=== PATIENT | male | born 1995 | race Caucasian/White ===

== ENCOUNTER 2023-06-24 18:20 | Observation (INO) | payer BC, SELFPAY ==
[2023-06-24 14:01] VITALS: BP 115/91
[2023-06-24 16:18] VITALS: BMI 28.5
[2023-06-24] MEDS: VERSED 2 MG IM (16:22)
--- NOTE | 2023-06-24 16:29 | ED.GENMED ---
History of Present Illness
General
Chief Complaint: Abdominal Pain
Time Seen by Provider: 06/24/23 15:47
Travel History
Have you had any contact with someone who has COVID-19?: No
Do you have any symptoms of coronavirus? Fever > 100 degrees, chills, cough, shortness of breath, sore throat, loss of taste or smell, muscle aches, or headache?: No
History of Present Illness
History of Present Illness:
28-year-old male with history of profound autism disorder presents due to an abnormal outpatient CT scan. He arrives with both parents. According to the parents since February he has had increased agitation and aggressive behavior however over the
past week he has had poor appetite. It is also noted that he had a fall 3 weeks ago and landed on his left side however did not seem to be affected by this negatively. He has had poor appetite over the past week and he saw his primary care
physician and they were concerned for a possible abdominal issue thus he was sent for an outpatient noncontrast CT scan which revealed free air adjacent to the left colon splenic flexure. Patient has not had any fevers and has not been vomiting.
Other than the aggression and appetite changes there has been no other abnormal behavior noted. No history of intra-abdominal surgeries. He does have chronic constipation
Review of Systems
Review of Systems
Allergies reviewed?: Yes
All Other Systems: ROS reviewed and negative except as documented in HPI and ROS
Phy Exam
Physical Exam
Physical Exam:
GEN: Well appearing, NAD, WDWN
HEENT: Oral mucosa moist, no scleral icterus
Cardiac: Regular rate
Lung: No respiratory distress, no tachypnea
Abdomen: Protuberant, generally soft and nonrigid with no pain elicited on exam
MSK: No gross deformity or injuries
Skin: Good color, no pallor or jaundice, no rashes
Neuro: Alert, moves all extremities freely, follows commands given by parents, nonverbal
Psych: Calm, cooperative
Course
Orders/Labs/Results
Orders:
Orders
06/24/23 16:00
Complete Blood Count/With Diff Urgent
Comprehensive Metabolic Panel Urgent
Lipase Urgent
Blood Culture Q30M
ALL Source: Blood/Venous
Specimen Description:
Midazolam HCl [Versed] 2 mg IM NOW STA
06/24/23 16:15
Lactic Acid Q4H
Comment: CANCEL 2nd LACTIC ACID IF 1st LACTIC ACID IS LESS THAN 2
06/24/23 16:30
Blood Culture Q30M
ALL Source: Blood/Venous
Specimen Description:
06/24/23 17:18
CT Abd/pel W Iv And Oral Contr Urgent
Comment:
Reason For Exam: free air on outpatient CT
Iohexol [Omnipaque] See Protocol PO NOW STA
06/24/23 20:15
Lactic Acid Q4H
Comment: CANCEL 2nd LACTIC ACID IF 1st LACTIC ACID IS LESS THAN 2
Vital Signs
Initial and Last Documented VS:
Initial Vital Signs
Temp Pulse Resp BP Pulse Ox
98.8 F 95 16 115/91 98
06/24/23 14:01 06/24/23 14:01 06/24/23 14:06/24/23 14:01 06/24/23 14:01
Last Documented Vital Signs
Temp Pulse Resp BP Pulse Ox
98.8 F 95 16 115/91 98
06/24/23 14:01 06/24/23 14:01 06/24/23 14:01 06/24/23 14:01 06/24/23 14:01
MDM/Problems Addressed
MDM/Problems Addressed:
He is a challenging situation does not clear the acuity of the visible free air. I reviewed the case with general surgery who consulted on the patient in the emergency department. After lengthy discussion with both parents her options were given
for urgent laparoscopic evaluation versus close observation, the parents elect observation. This is reasonable at this time given the patient is nontoxic and has a nonperitoneal abdominal exam. We will attempt to obtain a repeat CT scan with both
IV and p.o. contrast although this will likely be difficult in the setting of the patient's autism. He will be admitted to the surgical service for overnight observation with consideration of operative intervention if this is deemed necessary by
repeat imaging or repeat clinical examination.
Patient did require IM midazolam for anxiolysis in order to facilitate placement of IV and remainder of workup/consultations
*Critical Care Note
Total Time (30-74mins, 75-104mins- exclusive of procedures): Not Applicable
ED Attending Note
-
Portions of this chart may have been created with voice recognition software.� Occasional wrong word or��sound alike� substitutions may have occurred due to the inherent limitations of voice recognition software.
Discharge Plan
Departure
Patient Disposition: Admit
Date of Disposition: 06/24/23
Time of Disposition: 17:34
Admit to: Med/Surg
Presentation/result/management discussed w/ accepting MD/DO: General Surgery
Discharge Problem:
Intra-abdominal free air of unknown etiology
Interventions
Interventions:
*Risk Screen - Suicide Last Done: 06/24/23 16:22
*General Assessment Last Done: 06/24/23 16:22
*Neglect/Abuse Screening Last Done: 06/24/23 16:22
*ED COVID-19 Vaccine History Last Done: 06/24/23 16:22
KP-Vsenmh-Edivsandit Assessment Last Done: 06/24/23 16:22
[2023-06-24 17:30] VITALS: BP 124/71
--- NOTE | 2023-06-24 17:32 | W.PN.UPDATE ---
Update Note
Progress Note Update
Seen together with RONALDO. 28M non verbal 2/2 ASD with several months of intermittent increased agitation that seemed progressive to his parents. Long hx of constipation. Lately has been eating less and less over many weeks. They deny f/c/n/v. Last BM
yesterday reportedly was loose. Mom reports low dose advil a few times a day for the past few days, usually with some food but not much. He went for outpt noncon CT which showed a few small bubble of extraluminal air, along with an
ascending/transverse colon dilated with stool and fairly abrupt change at the splenic flexure with decompressed descending colon and rectum. Difficult exam given ASD, but there is no guarding, no rigidity, no effort to remove noxious stimuli, and
belly is overall soft. Unable to comment defnitively on tenderness but there was no grimace or noise during the exam. Labs presently have not been completed. He has been AFVSS since arrival.
Plan for admit to Surgery, IV abx, NPO, IVF, rpt CT A/P with PO and IV contrast, rpt labs in the am. SCDs and ppx lovenox. Discussed at length with parents, challenging situation. Up front dx lap was offered, after discussions the family preference
is to wait for additional data and to continue monitoring for now. I am in agreement.
[2023-06-24] MEDS: OMNIPAQUE 50 ML PO (17:37)
--- NOTE | 2023-06-24 17:39 | HPS.HSE ---
Addendum entered and electronically signed by Michael Fay MD 06/25/23 13:47:
I saw and examined the patient independently.
The Water Treatment [employer] Operator's note was reviewed and I agree with the note, assessment and plan except where noted below.
Comment: This is a 28-year-old male with a history of autism and worsening agitation over the past week with concern for abdominal pain in the setting of chronic constipation who was found to have localized pneumoperitoneum to the splenic flexure
portion of the colon without free fluid on CT at an outside hospital and presented here for further workup and management. A repeat scan here demonstrated pneumatosis coli without portal venous gas or concern for abdominal ischemia. The patient is
difficult to examine but he is and not tender to palpation in his abdomen soft.
No acute surgical intervention warranted at this time.
Will advance diet and have him continue advancing his diet at home.
Bowel regimen.
Will have the follow-up with me in a few weeks to discuss an outpatient colonoscopy and upper endoscopy
Dispo planning
Original Note:
Family Physician
-
Family Physician: Joey Hassan
Chief Complaint
-
agitation
History of Present Illness
This is a 28 yo male with a history of autism who presents through the ED with both parents as he has had worsening agitation over the past weeks. He first began to become more agitated back in February but this resolved without intervention;
however, agitation returned in the last several weeks prompting them to seek outpatient work up with his PCP. He is mostly nonverbal and unable to make needs known easily. Over the past 2 days, he has been refusing to eat or will take one bite and
then push his plate away. He struggles with chronic constipation and required a laxative 2 days ago as he had not had a BM for several days which his mother notes produced a large, loose brown BM yesterday. He has also seemed uncomfortable to his
parents and they have tried giving him ibuprofen 600mg 2-3 times a day over the past 4 days without much benefit. This morning, he had an outpatient CT image of the abd/pelvis at [facility] which demonstrated small bubbles of free intraperitoneal air and
they were instructed to bring him to the ED. On exam, he makes sounds but is nonverbal. He is comfortably watching cartoons on his cellphone and resting comfortably in bed. His abdomen is mildly distended, he registers some mild discomfort with
deep palpation to the left abdomen without peritoneal signs noted. He has normal vital signs and a normal WBC count.
Medical History
Past Medical History
Past Medical History: Reports Other (Autism)
Past Surgical History: Reports None
Social History
Tobacco: Non-smoker
Alcohol: None
Living: With Family
Family History
Family History: Not pertinent
Allergies / Home Medications
Allergies reflects when Allergies were last updated in [facility].
Home Medications with original date entered in [facility]
Allergy/Medication List:
Medication Instructions Recorded Confirmed Type
apple cider vinegar 300 mg tablet 300 mg PO DAILY 06/24/23 06/24/23 History
ascorbic acid (vitamin C) 500 mg 500 mg PO DAILY 06/24/23 06/24/23 History
tablet (Vitamin C)
cholecalciferol (vitamin D3) 25 25 mcg PO DAILY 06/24/23 06/24/23 History
mcg (1,000 unit) tablet (Vitamin
D3)
clonazepam 0.5 mg tablet 0.5 mg PO QPM 06/24/23 06/24/23 History
clonazepam 0.5 mg tablet 1 mg PO DAILY 06/24/23 06/24/23 History
clonidine HCl 0.1 mg tablet 0.1 mg PO QID 06/24/23 06/24/23 History
diphenhydramine HCl 50 mg capsule 50 mg PO DAILYPRN PRN anxiety 06/24/23 06/24/23 History
ibuprofen 200 mg tablet (Advil) 400 mg PO Q6HPRN PRN mild pain 06/24/23 06/24/23 History
sertraline 50 mg tablet 50 mg PO BID 06/24/23 06/24/23 History
therapeutic multivitamin 1 tab PO DAILY 06/24/23 06/24/23 History
Patient Allergies
Allergy/AdvReac Type Severity Reaction Status Date / Time
haloperidol [From Haldol] Allergy Swelling Verified 06/24/23 13:59
Review of Systems
-
Unable to obtain full review of systems at this time due to: Patient Non-verbal
History Source: Family
Physical Exam
Vital Signs
Vital Signs
Temp Pulse Resp BP Pulse Ox
98.8 F 84 16 124/71 95
06/24/23 14:01 06/24/23 17:30 06/24/23 17:30 06/24/23 17:30 06/24/23 17:30
Physical Exam
General: Well Developed, Well Nourished and No Apparent Distress
HEENT: NormoCephalic and Moist mucous membranes
Respiratory: Non Labored Respirations
GI: Soft, Tender (Possibly tender to LUQ, difficult exam) and Distended (mild)
Skin: Warm and Dry
Neuro: Awake and Alert
Psych: Calm
Data Reviewed
-
CT Scan: Image Personally Visualized and interpreted, Report Reviewed by me, Discussed with Physician and Discussed with Patient
Lab Data: Labs Reviewed by me, Discussed with Physician, Discussed with Patient and Discussed with Family
Old Records: Reviewed
Impression/Plan
-
IMPRESSION: 28 yo male with autism who is nonverbal presenting with several weeks of worsening agitation with loss of appetite and acute worsening over the past few days. Outpatient CT at [facility] with IV contrast shows a few small bubble of
extraluminal air, along with an ascending/transverse colon dilated with stool and fairly abrupt change at the splenic flexure with decompressed descending colon and rectum.�Vital signs and labs WNL. Challenging situation given exam limitations.
Discussed at length with parents regarding dx lap vs watchful waiting. Opting for watchful waiting at this time. Differential includes perforated gastric/duodenal ulcer given NSAID use or more likely small perforated diverticulitis vs small
perforation from stercoral colitis.
PLAN:
Admit for observation
Keep NPO and follow labs/exams
Start IV antibiotics
Pain management as needed
Repeat Ct a/p with oral and iv contrast
SCDs/Lovenox for vte ppx
[2023-06-24 17:42] LABS: % Basophils 0.3 % (0-2); % Eosinophils 2.9 % (0-6); % Immature Granulocytes 0.2 % (0-0.5); % Lymphocytes 20.7 % (20.5-51.1); % Monocytes 8.4 % (1.7-9.3); % Neutrophils 67.5 % (42.2-75.2); Absolute Eosinophils 0.2 10^3/uL (0-0.7); Absolute Lymphocytes 1.2 10^3/uL (1.2-3.4); Absolute Monocytes 0.5 10^3/uL (0.1-0.6); Hematocrit 45.4 % (39.0-52.0); Hemoglobin 15.8 g/dL (13.0-18.0); Mean Corp Hgb Conc. 34.8 g/dL (33.0-37.0); Mean Corpuscular Volume 86.1 fL (80.0-94.0); Mean Platelet Volume 11.5 fL (7.4-10.4); Nucleated Red Blood Cells % 0 % (-); Platelet Count 228 10^3/uL (130-400); Red Blood Cell Count 5.27 10^6/uL (4.70-6.10); Red Cell Dist. Width 12.3 % (11.5-14.5); White Blood Cell Count 5.9 10^3/uL (4.8-10.8)
[2023-06-24 17:54] LABS: Lactic Acid 0.9 mmol/L (0.7-2.0)
[2023-06-24 18:01] LABS: ALT (SGPT) 23 U/L (0-50); AST (SGOT) 27 U/L (17-59); Albumin 3.8 g/dl (3.5-5.0); Alkaline Phosphatase 104 U/L (38-126); Blood Urea Nitrogen 14 mg/dl (9-20); Calcium 9.1 mg/dl (8.4-10.2); Carbon Dioxide 27 mmol/L (22-30); Chloride 104 mmol/L (98-107); Estimated Creatinine Clearance > 125 ml/min; Glucose 94 mg/dl (70-99); Potassium 4.1 mmol/L (3.5-5.1); Sodium 140 mmol/L (135-145); Total Bilirubin 0.6 mg/dl (0.2-1.3); Total Protein 7.1 g/dl (6.3-8.2); eGFR > 60.00
[2023-06-24 18:02] LABS: Lipase 204 U/L (23-300)
[2023-06-24 18:42] VITALS: BP 109/72
[2023-06-24 20:00] VITALS: BP 124/72; BMI 27.0
--- NOTE | 2023-06-24 20:00 | PTCARENOTE ---
Received patient from ED. Patient ambulated to bed from stretcher with minimal assistance. Both mom and dad are here and staying at the bedside with home. Reviewed plan of care with them. Answered questions. patient assessed, vitals obtained.
Administered medications as ordered-see MAR. Will continue to monitor
[2023-06-24] MEDS: CATAPRES 0.100000000000000006 MG PO ×2 (21:18→23:44)
[2023-06-24] MEDS: ZOSYN 50 IV (21:18)
[2023-06-24] MEDS: LOVENOX 40 MG SC (21:18)
[2023-06-24] MEDS: PROTONIX IV 40 MG IV (21:19)
[2023-06-24] MEDS: NSS (PRESERVATIVE FREE) 10 ML IV (21:19)
[2023-06-24] MEDS: ZOLOFT PO (21:19)
[2023-06-24] MEDS: KLONOPIN 0.5 MG PO (22:32)
[2023-06-24 23:20] VITALS: BP 121/72
[2023-06-24] MEDS: TYLENOL 650 MG PO (23:48)
[2023-06-25] MEDS: ZOSYN 50 IV ×2 (02:51→07:53)
[2023-06-25] MEDS: DILAUDID 0.5 MG IV (04:27)
[2023-06-25 07:27] VITALS: BP 124/83
[2023-06-25 07:40] LABS: Hematocrit 47.1 % (39.0-52.0); Hemoglobin 16.2 g/dL (13.0-18.0); Mean Corp Hgb Conc. 34.4 g/dL (33.0-37.0); Mean Corpuscular Hgb 29.8 pg (27.0-31.0); Mean Corpuscular Volume 86.7 fL (80.0-94.0); Mean Platelet Volume 11.6 fL (7.4-10.4); Platelet Count 212 10^3/uL (130-400); Red Blood Cell Count 5.43 10^6/uL (4.70-6.10); Red Cell Dist. Width 12.2 % (11.5-14.5); White Blood Cell Count 5.1 10^3/uL (4.8-10.8)
[2023-06-25] MEDS: CATAPRES 0.100000000000000006 MG PO (07:52)
[2023-06-25] MEDS: NSS (PRESERVATIVE FREE) 10 ML IV (07:52)
[2023-06-25] MEDS: KLONOPIN 1 MG PO (07:52)
[2023-06-25] MEDS: ZOLOFT 50 MG PO (07:52)
[2023-06-25] MEDS: PROTONIX IV 40 MG IV (07:53)
[2023-06-25 07:55] LABS: Blood Urea Nitrogen 13 mg/dl (9-20); Carbon Dioxide 28 mmol/L (22-30); Chloride 102 mmol/L (98-107); Estimated Creatinine Clearance > 125 ml/min; Glucose 83 mg/dl (70-99); Sodium 140 mmol/L (135-145); eGFR > 60.00
--- NOTE | 2023-06-25 08:13 | W.PN.GS2 ---
Today's Communication / Plan
-
dispo planning
Assessment / Plan
-
28 yo male with autism who is nonverbal presenting with several weeks of worsening agitation with loss of appetite and acute worsening over the past few days. Outpatient CT at [facility] with IV contrast shows a few small bubbles of extraluminal air.
AFVSS
Labs WNL
Repeat CT with IV and PO contrast with pneumatosis coli present involving the hepatic flexure and the splenic flexure.
Plan:
No surgical intervention warranted at this time, plan outpatient colonoscopy and bowel regimen
Start full liquid diet and advance as tolerated
Discharge to home once tolerating diet
Subjective Data
-
Date of Service: June 25, 2023
Patient seen and examined at bedside with Dr. Fay. Awake and playing with a fidget spinner. Parents at bedside, questions addressed. They see no signs of pain/discomfort although he is quite anxious in the hospital environment
Objective Data
-
Intake and Output
06/24/23 06/25/23 06/26/23
06:59 06:59 06:59
Intake Total 220 / 220
Balance 220 / 220
Intake:
Oral fluids 120 / 120
IV piggybacks 100 / 100
Vital Signs
Temp Pulse Resp BP Pulse Ox
97.4 F 79 16 124/72 98
06/24/23 23:20 06/24/23 23:20 06/24/23 23:20 06/24/23 23:44 06/24/23 23:20
Lab Results
06/25/23 06:47
06/25/23 06:47
Calcium 9.0 mg/dl (8.4-10.2) 06/25/23 06:47
Total Bilirubin 0.6 mg/dl (0.2-1.3) 06/24/23 17:28
AST 27 U/L (17-59) 06/24/23 17:28
ALT 23 U/L (0-50) 06/24/23 17:28
Alkaline Phosphatase 104 U/L (38-126) 06/24/23 17:28
Total Protein 7.1 g/dl (6.3-8.2) 06/24/23 17:28
Albumin 3.8 g/dl (3.5-5.0) 06/24/23 17:28
Physical Exam
-
NAD
ABD soft/nt/nd
--- NOTE | 2023-06-25 08:18 | W.DCSUMMARY ---
Discharge Summary
Discharge Data
Date of Admission: 06/24/23
Date of Discharge: 06/25/23
-
Pending Results: No
Hospital Course
This is a 28 yo autistic male with chronic constipation who presented with abnormal outpatient CT imaging of the abdomen which showed some small bubbles of extraluminal air. Imaging was preformed as he had increasing agitation and poor appetite over
the past several weeks at home and his parents sought outpatient work up. Repeat image with PO and IV contrast showed pneumatosis coli. Abdominal exam, labs and vitals were benign. He was discharged to home with plan for outpatient work up with
colonoscopy in the coming weeks.
Discharge Plan
-
Patient Disposition: Home (Routine Discharge)
Discharge Diagnosis/Procedures: pneumatosis coli
Condition: Good
Diet: As tolerated and Regular
Bathing Restrictions: OK to Shower
Activity Restrictions/Additional Instructions:
We recommend an outpatient colonoscopy in a few months to further evaluate the colon. Please call the office to schedule.
Use Miralax (over the counter) as needed for constipation.
Referrals:
Joey Hassan DO [Family Provider] -
Michael Fay MD [Active] - in one to two months
Prescriptions:
New
polyethylene glycol 3350 [polyethylene glycol 3350] 17 gram powder in packet
17 g PO DAILYPRN PRN (Reason: constipation) Qty: 1 0RF
Continued
clonidine HCl 0.1 mg Tablet
0.1 mg PO QID
diphenhydramine HCl 50 mg Capsule
50 mg PO DAILYPRN PRN (Reason: anxiety)
clonazepam 0.5 mg Tablet
1 mg PO DAILY
clonazepam 0.5 mg Tablet
0.5 mg PO QPM
therapeutic multivitamin Tablet
1 tab PO DAILY
ascorbic acid (vitamin C) [Vitamin C] 500 mg Tablet
500 mg PO DAILY
ibuprofen [Advil] 200 mg Tablet
400 mg PO Q6HPRN PRN (Reason: mild pain)
sertraline 50 mg Tablet
50 mg PO BID
cholecalciferol (vitamin D3) [Vitamin D3] 25 mcg (1,000 unit) Tablet
25 mcg PO DAILY
apple cider vinegar 300 mg Tablet
300 mg PO DAILY
Discharge Orders:
Discharge Patient (As Directed); Ordered 06/25/23
Ordered By: Merry Zuleta
Discharge Date and Time
Discharge Date/Time: 06/25/23 09:58
--- NOTE | 2023-06-25 10:05 | CM ---
CM revieed chart
Pt discharged prior to CM meeting with family to complete IS and issuing OBS notice
Per chart review, no dc needs noted
--- NOTE | 2023-06-27 09:20 | CM ---
Post Discharge: Patient was medically cleared for discharge with no needs.
== END 2023-06-25 09:58 | disposition home or self-care (01) ==
LOC: 2 SOUTH 18:20
PROVIDERS: Physician Assistant; Registered Nurse; ADMITTING PHYSICIAN Surgery; EMERGENCY PHYSICIAN Emergency Medicine; FAMILY PHYSICIAN Family Medicine
DX: K63.89 Other specified diseases of intestine (principal); R10.9 Unspecified abdominal pain; K59.09 Other constipation; F84.0 Autistic disorder; R45.1 Restlessness and agitation; F50.89 Other specified eating disorder; Z68.27 Body mass index [BMI] 27.0-27.9, adult; R16.1 Splenomegaly, not elsewhere classified
CPT/HCPCS: 74177; 80048; 80053; 83605; 83690; 85025; 85027; 87040; 96372; 99285; G0378; J2358; Q9967

== ENCOUNTER → 2023-07-08 11:52 | Outpatient (REF) | payer BC, SELFPAY | LOC: HWRAD 11:52 | PROVIDERS: ATTENDING PHYSICIAN Surgery; FAMILY PHYSICIAN Family Medicine | DX: K59.00 Constipation, unspecified (principal); K63.89 Other specified diseases of intestine; R07.89 Other chest pain | CPT/HCPCS: 71260; 74177; Q9967 ==